=== PATIENT | female | born 1990 | race Caucasian/White ===

== ENCOUNTER 2021-09-14 11:44 | Emergency (ER) | payer OTHER, SELFPAY ==
[2021-09-14 11:52] VITALS: BP 135/72; PULSE 100; RESP 16; TEMP 37; O2SAT 99
[2021-09-14 12:08] VITALS: BP 135/72; PULSE 100; RESP 16; TEMP 37; O2SAT 99
--- NOTE | 2021-09-14 12:08 | ED.FEMALEGU ---
HPI - Female Genitourinary General Chief complaint: Urogenital-Female Stated complaint: Uti Time Seen by Provider: 09/14/21 12:08 Source: patient History of Present Illness HPI Narrative: 2 day history of dysuria, urgency and low back pain. no gross hematuria and no flank pain. no concern for sti. Related Data Home Medications Medication Instructions Recorded Confirmed albuterol sulfate See Rx Instructions .ROUTE 09/14/21 09/14/21 .COMPLEX PRN bupropion HCl 300 mg PO DAILY 09/14/21 09/14/21 ergocalciferol (vitamin D2) 1,250 mcg PO WEEKLY 09/14/21 09/14/21 nortriptyline 25 mg PO DAILY 09/14/21 09/14/21 trazodone 100 mg PO BID 09/14/21 09/14/21 Allergies Allergy/AdvReac Type Severity Reaction Status Date / Time No Known Allergies Allergy Verified 09/14/21 11:55 Review of Systems Review of Systems: CONSTITUTIONAL: Denies fever, chills, or sweats. EYES: Denies visual changes, redness, or discharge. ENT: Denies rhinorrhea, congestion, sore throat, or otalgia. CARDIOVASCULAR: Denies chest pain, palpitations, or edema. RESPIRATORY: Denies cough or dyspnea. GASTROINTESTINAL: Denies abdominal pain, nausea, vomiting, or diarrhea. GENITOURINARY: Denies dysuria or hematuria. SKIN: Denies rash or itching. MUSCULOSKELETAL: Denies back pain, joint pain, or myalgia. NEUROLOGIC: Denies headache, numbness, or weakness. PSYCHIATRIC: Denies anxiety or depression. PMFSH Comments At time of signature, agree with nursing past medical, surgical, social and family history. There is no relevant family history pertinent to the presenting complaint Exam Narrative: GENERAL: Well-appearing, well-nourished, and in no acute distress. HEAD: Normocephalic, atraumatic. EYES: PERRLA and EOMI. ENT: Nares clear, no rhinorrhea or epistaxis. Mucous membranes moist. NECK: Supple. CHEST: Clear to auscultation. No respiratory distress. HEART: Regular rate and rhythm. No murmur heard. Normal peripheral pulses. ABDOMEN: Soft, nontender, nondistended, normal active bowel sounds. EXTREMITIES: Normal range of motion. No edema. SKIN: Warm, dry, no rash. NEURO: No focal deficits. Alert and oriented x3. [place] Coma Scale Eye Opening: Spontaneous 4 [place] Coma Scale Motor: Obeys Commands 6 [place] Coma Scale Verbal: Oriented 5 [place] Coma Scale Total 15 Course Vital Signs Vital signs: Vital Signs Temperature 37.0 C 09/14/21 11:52 Pulse Rate 100 09/14/21 11:52 Respiratory Rate 16 09/14/21 11:52 Blood Pressure 135/72 09/14/21 11:52 Pulse Oximetry 99 09/14/21 11:52 Temperature 37.0 C 09/14/21 12:08 Pulse Rate 100 09/14/21 12:08 Respiratory Rate 16 09/14/21 12:08 Blood Pressure 135/72 09/14/21 12:08 Pulse Oximetry 99 09/14/21 12:08 Addressed elevated BP today. Today's blood pressure higher than recommended range. Discussed importance of follow -up with PCP and possible long term acute care registered nurse effects/cardiovascular events related to HTN. Currently patient denies headache, dizziness, vision changes, CP or shortness of breath. MDM - Female Genitourinary Differential Diagnosis Differential diagnosis: Likely urinary tract infection, bacterial vaginosis, trichomoniasis, cervicitis, ovarian cyst, vaginitis, ruptured ovarian cyst and cyst of Bartholin's gland Lab Data Labs: Urine Glucose Negative Reference Range: Negative Urine Glucose Negative Reference Range: Negative Urine Bilirubin Negative Reference Range: Negative Urine Bilirubin Negative Reference Range: Negative Urine Ketone Negative Reference Range: Negative Urine Ketone Negative Referenc
== END 2021-09-14 12:14 | disposition home or self-care (01) ==
PROVIDERS: Emergency Provider Nurse Practitioner Family; PCP Nurse Practitioner Family
DX: N39.0 Urinary tract infection, site not specified (principal); J45.909 Unspecified asthma, uncomplicated; Q51.0 Agenesis and aplasia of uterus; F41.9 Anxiety disorder, unspecified; F32.A Depression, unspecified
CPT/HCPCS: 81003; 87086; 87088; 99203; G0463